=== PATIENT | female | born 1940 | race African-American/Black ===

== ENCOUNTER 2017-01-02 14:12 | Emergency (ER) | payer MEDICARE ==
[2017-01-02 15:08] LABS: HCT 27.1 % (37.0-47.0); HGB 8.4 g/dl (12.5-16.0); MCV 109.7 fL (78.0-100.0); MPV 12.2 fL (6.0-9.5); PLT 62 K/uL (150-400); RBC 2.47 M/uL (4.20-5.40)
[2017-01-02 15:25] LABS: WBC 39.8 K/uL (4.0-10.5)
[2017-01-02 15:40] LABS: TROPONIN T 0.072 ng/mL
[2017-01-02 15:43] LABS: PRO-BNP > 35000 pg/mL (0-450)
[2017-01-02 16:28] LABS: ALBUMIN 3.5 g/dL (3.4-4.8); BILIRUBIN - TOTAL 0.6 mg/dL (0.1-1.0); CREATININE 3.3 mg/dL (0.5-1.0); GLOBULIN (CALCULATION) 2.1 g/dL (2.2-4.2); POTASSIUM 3.4 mmol/L (3.5-5.1); TOTAL PROTEIN 5.6 g/dL (6.4-8.3)
== END 2017-01-02 17:30 | disposition home or self-care (01) ==
LOC: FER 14:12
PROVIDERS: Emergency Medicine
DX: R06.02 Shortness of breath (principal); I12.0 Hypertensive chronic kidney disease with stage 5 chronic kidney disease or end stage renal disease; E11.22 Type 2 diabetes mellitus with diabetic chronic kidney disease; N18.6 End stage renal disease; J44.9 Chronic obstructive pulmonary disease, unspecified; C85.90 Non-Hodgkin lymphoma, unspecified, unspecified site; Z79.82 Long term (current) use of aspirin; Z79.51 Long term (current) use of inhaled steroids; Z79.01 Long term (current) use of anticoagulants; Z79.899 Other long term (current) drug therapy; Z99.2 Dependence on renal dialysis; Z99.81 Dependence on supplemental oxygen
CPT/HCPCS: 36415; 71010; 80053; 83880; 84484; 85025; 93005; 94640

== ENCOUNTER 2017-01-17 11:35 | Emergency (ER) | payer MEDICARE | END 2017-01-17 15:45 | disposition home or self-care (01) | LOC: FER 11:35 | DX: S00.03XA Contusion of scalp, initial encounter (principal); I95.9 Hypotension, unspecified; I50.9 Heart failure, unspecified; W19.XXXA Unspecified fall, initial encounter; Y92.009 Unspecified place in unspecified non-institutional (private) residence as the place of occurrence of the external cause | CPT/HCPCS: 70450 ==